=== PATIENT | male | born 1975 | race Caucasian/White ===

== ENCOUNTER 2017-06-16 22:19 | Inpatient (IN) | payer OTHER, MEDICAID ==
[~2017-06-16] VITALS: Ht 172.7 cm; Wt 92.4 kg
[2017-06-16 22:50] VITALS: BP 148/94; PULSE 90; RESP 18; TEMP 98.9; O2SAT 97
[2017-06-16 23:05] VITALS: BP 149/107; PULSE 86; RESP 18; O2SAT 96
[2017-06-16 23:12] VITALS: BP 148/94; PULSE 90; RESP 18; TEMP 98.9; O2SAT 97
[2017-06-17] VITALS (18 sets, daily range): BP systolic 137–151; BP diastolic 85–101; PULSE 3–89; RESP 16–20; TEMP 97.9–99; O2SAT 95–99
[2017-06-17] MEDS ORDERED: VANCOMYCIN INJ 1,500 MG in SODIUM CHLORID 0.9% 500 ML INJ 500 ML IV ONE (00:15)
[2017-06-17 00:29] LABS: AUTOMATED NEUTROPHIL # 5.8 TH/MM3 (1.8-7.7); BASOPHIL # 0.1 TH/MM3 (0-0.2); BASOPHIL % 0.8 % (0.0-2.0); EOSINOPHIL # 0.1 TH/MM3 (0-0.4); EOSINOPHIL % 0.9 % (0.0-4.0); HEMATOCRIT 43.7 % (39.0-51.0); HEMO FLAGS DIFF FINAL; LYMPH % 18.9 % (9.0-44.0); LYMPHOCYTE # 1.6 TH/MM3 (1.0-4.8); MEAN CELL VOLUME 87.6 FL (80.0-100.0); MEAN CORPUSCULAR HEMOGLOBIN 29.3 PG (27.0-34.0); MEAN CORPUSCULAR HGB CONC 33.4 % (32.0-36.0); MONO % 8.5 % (0.0-8.0); NEUT % 70.9 % (16.0-70.0); PLATELET COUNT 202 TH/MM3 (150-450); RED BLOOD COUNT 4.98 MIL/MM3 (4.50-5.90); RED CELL DISTRIBUTION WIDTH 12.7 % (11.6-17.2); WHITE BLOOD COUNT 8.3 TH/MM3 (4.0-11.0)
[2017-06-17 00:37] LABS: POTASSIUM 4.1 MEQ/L (3.5-5.1)
[2017-06-17 00:40] LABS: BICARBONATE 27.5 MEQ/L (21.0-32.0)
[2017-06-17] MEDS ORDERED: IOHEXOL 350 MG/ML 10 ML VIAL (for RAD DIAG) IV ONE (01:39)
--- NOTE | 2017-06-17 01:51 | RADRPT ---
EXAM DATE/TIME: 06/17/2017 01:20 [place] COMPARISON: No previous studies available for comparison. INDICATIONS : Right leg swelling and redness status post arterial graft surgery. IV CONTRAST: 100 cc Omnipaque 350 (iohexol) IV RADIATION DOSE: 15.22 CTDIvol (mGy) MEDICAL HISTORY : None SURGICAL HISTORY : Graft from right upper leg ENCOUNTER: Initial ACUITY: 3 weeks PAIN SCALE: 0/10 LOCATION: Right medial femur TECHNIQUE: Volumetric scanning of the femur was performed. Using automated exposure control and adjustment of t he mA and/or kV according to patient size, radiation dose was kept as low as reasonably achievable to obtain optimal diagnostic quality images. DICOM format image data is available electronically for review and comparison. FINDINGS: Patient is recently status post removal of the greater saphenous vein which was harvested for a graft . Several nonspecific mildly prominent enhancing right inguinal lymph nodes are noted in the right gr oin. The lymph nodes measure about 2.1 cm in diameter. There is post surgical changes in the soft tis sues along the tract of the greater saphenous vein characteristic of the patient's recent surgery. Th ere is nonspecific edema and soft tissue changes in the subcutaneous soft tissues along the anterior and medial thigh. No definite loculated fluid collections are seen to suggest an abscess. There is fl uid along the tract of the greater saphenous vein which I suspect is most likely postsurgical. The ruth ny structures are grossly intact. CONCLUSION: 1. There are postsurgical changes noted in the soft tissues along the medial aspect of the thigh loli acteristics of patient's recent surgery which was removal of the greater saphenous vein for a vein gr aft. There is fluid noted along the greater saphenous tract which I suspect is most likely postsurgic al. 2. There is nonspecific edema and soft tissue changes in the subcutaneous soft tissues along the ante rior medial thigh. No definite loculated fluid collections are demonstrated to suggest an abscess at this time. 3. There is nonspecific mildly prominent right inguinal lymph nodes which are most likely reactive. Andrew Fisher MD on June 17, 2017 at 1:43 Board Certified Radiologist. This report was verified electronically.
--- NOTE | 2017-06-17 02:38 | PD ---
HPI Chief Complaint: Skin Problem Time Seen by Provider: 00:01 Travel History International Travel<30 days: No Contact w/Intl Traveler<30days: No Traveled to known affect area: No History of Present Illness HPI 41-year-old male presents to the emergency department by private transportation the care of his spouse for complaint of worsening redness swelling and tenderness to the right occipital thigh and the postsurgical site where he had saphenous vein harvesting for repair of a brachial artery injury sustained while at work 05/27/17 by vascular surgeon, Dr Scott Rodriguez, at [facility]. Patient has done well postoperatively and has had sutures removed from the 2 surgical sites. Patient noted more recently that he's had some redness to the proximal thigh and then 2 days ago noticed that the redness was increasing so went to urgent care and was prescribed Bactrim and has had 4 doses of Bactrim. Patient notes today that the area of redness is worsening and increasing induration but no fever or chills and the area demarcated by a pin has not extended significant beyond that side. Patient [facility] surgeon was notified and was satisfied with patient continuing on oral antibiotic and encouraged him to keep his scheduled appointment for June as planned. Due to increasing symptoms this evening decided to come to the emergency room for further evaluation. [facility] Past Medical History Narrative Medical Brachial artery repair status post crush injury with saphenous vein harvesting; occasional alcohol use; nursing notes reviewed Past Surgical History Other Surgery: Yes (Brachial artery-crush injury) Social History Alcohol Use: Yes (Socially) Tobacco Use: No Substance Use: No Allergies-Medications (Allergen,Severity, Reaction): Coded Allergies: Penicillin (Verified Allergy, Unknown, unknown, 06/16/17) Narrative Medication bactrim DS Review of Systems Except as stated in HPI: all other systems reviewed are Neg General / Constitutional: No: Fever, Chills HENT: No: Congestion Cardiovascular: No: Chest Pain or Discomfort Respiratory: No: Shortness of Breath Gastrointestinal: No: Nausea, Diarrhea Genitourinary: No: Dysuria Musculoskeletal: Positive: Myalgias, Arthralgias, Limited ROM (RUE --improving and ROM c/w expected progress), Pain (5/10 right proximal medial thigh) Skin: Positive Rash Neurologic: No: Weakness Psychiatric: No: Anxiety Hematologic/Lymphatic: No: Easy Bruising Physical Exam Narrative GENERAL: Well-developed well-nourished female in no acute distress no respiratory distress SKIN: Warm and dry. HEAD: Normocephalic. EYES: No scleral icterus. No injection or drainage. NECK: Supple, trachea midline. No JVD or lymphadenopathy. CARDIOVASCULAR: Regular rate and rhythm without murmurs, gallops, or rubs. RESPIRATORY: Breath sounds equal bilaterally. No accessory muscle use. GASTROINTESTINAL: Abdomen soft, non-tender, nondistended. MUSCULOSKELETAL: No cyanosis, or edema. Attention right lower extremity without generalized edema Homans sign or posterior calf tenderness or cording dorsalis pedis pulse 2+ to palpation with brisk capillary refill less than 2 seconds per digit no pallor or coolness of the patient does have area of localized erythema induration and mild tenderness to palpation at the right proximal medial thigh around the postsurgical site where sutures have been removed no active drainage no severe purulent drainage no fluctuance no crepitus no ecchymosis no eschar no necrotic tissue area of erythema and induration approximately 20 cm x 12 cm. RUE no redness or induration no drainage steri strips in place distally extremity is neurovascularly intact with intact light touch sensation brisk capillary refill less than 2 seconds per digit radial pulse 2+ to palpation patient continues to have some residual wrist drop and wears a brace at all times that is reportedly at baseline are slowly improving. Patient unable to perform thumb apposition which has been present since injury. BACK: Nontender without obvious deformity. No CVA tenderness. Data Data Last Documented VS Vital Signs Date Time Temp Pulse Resp B/P Pulse Ox O2 Delivery O2 Flow Rate FiO2 06/17/17 03:17 83 16 140/96 97 Room Air 06/16/17 23:12 98.9 Orders Basic Metabolic Panel (Bmp) (06/17/17 00:04) Complete Blood Count With Diff (06/17/17 00:04) Blood Culture (06/17/17 00:04) Iv Access Insert/Monitor (06/17/17 00:04) Lactic Acid (06/17/17 00:04) Vancomycin Inj (Vancomycin Inj) (06/17/17 00:15) Ct Femur W Iv Contrast (06/17/17 ) Iohexol 350 Inj (Omnipaque 350 Inj) (06/17/17 01:39) Levofloxacin 500 Mg Premix Inj (Levaquin (06/17/17 03:45) Admit Order (Ed Use Only) (06/17/17 ) ^ Saline Lock (06/17/17 03:37) Resp Oxygen Rigo C Titrat 1-4 L (06/17/17 ) Notify Dr: Other (06/17/17 03:37) Sodium Chloride 0.9% Flush (Ns Flush) (06/17/17 09:00) Sodium Chloride 0.9% Flush (Ns Flush) (06/17/17 03:45) Labs Laboratory Tests Test 06/17/17 00:09 White Blood Count 8.3 TH/MM3 Red Blood Count 4.98 MIL/MM3 Hemoglobin 14.6 GM/DL Hematocrit 43.7 % Mean Corpuscular Volume 87.6 FL Mean Corpuscular Hemoglobin 29.3 PG Mean Corpuscular Hemoglobin 33.4 % Concent Red Cell Distribution Width 12.7 % Platelet Count 202 TH/MM3 Mean Platelet Volume 10.0 FL Neutrophils (%) (Auto) 70.9 % Lymphocytes (%) (Auto) 18.9 % Monocytes (%) (Auto) 8.5 % Eosinophils (%) (Auto) 0.9 % Basophils (%) (Auto) 0.8 % Neutrophils # (Auto) 5.8 TH/MM3 Lymphocytes # (Auto) 1.6 TH/MM3 Monocytes # (Auto) 0.7 TH/MM3 Eosinophils # (Auto) 0.1 TH/MM3 Basophils # (Auto) 0.1 TH/MM3 CBC Comment DIFF FINAL Differential Comment Sodium Level 143 MEQ/L Potassium Level 4.1 MEQ/L Chloride Level 109 MEQ/L Carbon Dioxide Level 27.5 MEQ/L Anion Gap 7 MEQ/L Blood Urea Nitrogen 16 MG/DL Creatinine 1.10 MG/DL Estimat Glomerular Filtration 74 ML/MIN Rate Random Glucose 98 MG/DL Lactic Acid Level 1.1 mmol/L Calcium Level 8.6 MG/DL MDM Medical Decision Making Medical Screen Exam Complete: Yes Emergency Medical Condition: Yes Medical Record Reviewed: Yes Interpretation(s) CT femur w/ iv contrast: CONCLUSION: 1. There are postsurgical changes noted in the soft tissues along the medial aspect of the thigh characteristics of patient's recent surgery which was removal of the greater saphenous vein for a vein graft. There is fluid noted along the greater saphenous tract which I suspect is most likely postsurgical. 2. There is nonspecific edema and soft tissue changes in the subcutaneous soft tissues along the anterior medial thigh. No definite loculated fluid collections are demonstrated to suggest an abscess at this time. 3. There is nonspecific mildly prominent right inguinal lymph nodes which are most likely reactive. Andrew Fisher MD on June 17, 2017 at 1:43 Board Certified Radiologist. This report was verified electronically. CBC & BMP Diagram 06/17/17 00:09 Vital Signs Date Time Temp Pulse Resp B/P Pulse Ox O2 Delivery O2 Flow Rate FiO2 06/17/17 01:55 79 18 151/89 97 Room Air 06/17/17 00:30 18 06/17/17 00:20 82 18 150/101 95 Room Air 06/16/17 23:20 18 06/16/17 23:12 98.9 90 18 148/94 97 06/16/17 23:05 86 18 149/107 96 Room Air 06/16/17 22:50 98.9 90 18 148/94 97 Differential Diagnosis Cellulitis, abscess, pseudoaneurysm Narrative Course IV access obtained specimens collected and sent for resulting including blood cultures and lactic acid; patient administered IV vancomycin times one dose. CT femur with IV contrast to assess for abscess ordered. Physician Communication Physician Communication call placed to [facility] service --- ---> [facility]; call placed to vascular service - Dr stroud rec: [facility] and [facility] if stays; call placed to [facility] for Dr Rodriguez ([phone]) discussed with Dr Sage Harding---iv antibiotics no need for transfer --can see Dr Rodriguez Wednesday in [place] office; discussed with DR Caceres ---admit to [facility] no vascular issue at this time for IV antibiotics and if needs vascular will consult/transfer at that time Diagnosis Primary Impression: Cellulitis of right thigh Admitting Information Admitting Physician Requests: Admit Crystal Ybarra MD Jun 17, 2017 02:38
[2017-06-17] MEDS ORDERED: SODIUM CHLORIDE 0.9% FLUSH 10 ML FLUSH IVF PRN (03:45)
[2017-06-17] MEDS ORDERED: SODIUM CHLORIDE 0.9% FLUSH 10 ML FLUSH IV FLUSH PRN (03:45)
[2017-06-17] MEDS ORDERED: NALOXONE HCL 0.4 MG/ML AMP IV PRN (03:45)
[2017-06-17] MEDS ORDERED: LEVOFLOXACIN 500 MG PREMIX INJ 100 ML IV ONE ×2 (03:45→04:00)
[2017-06-17] MEDS ORDERED: MUPI2OIN TOPICAL (04:16)
[2017-06-17] MEDS ORDERED: SULF1TAB58 PO (04:16)
[2017-06-17] MEDS ORDERED: Vancomycin Consult Pharmacy 1 EA OTHER SCH (07:30)
--- NOTE | 2017-06-17 07:40 | HHI.HP ---
[facility] Service [facility] Primary Care Physician No Primary Care Physician Admission Diagnosis post op cellulitis R thigh Diagnoses: (1) Cellulitis of right thigh Diagnosis: Principal Chief Complaint: redness and swelling of the right thigh Travel History International Travel<30 Days: No Contact w/Intl Traveler <30 Da: No Traveled to Known Affected Are: No History of Present Illness patient is a 41 y/o male with no significant past medical history who underwent saphenous vein harvesting for repair of a brachial artery injury sustained while at work 05/27/17 by vascular surgeon, Dr Scott Rodriguez, at [facility], presented with swelling and redness of the right thigh at the site of the surgery. he says that he noticed some swelling of the right thigh about a week ago. he was seen at urgent care two days ago and was prescribed bactrim. he says that he took bactrim for a couple of days but last night when he noticed that the redness and swelling was not improving he decided to come back to ER. he denies any fever or chills. pain to the site is mild. he denies any other symptoms. Review of Systems Constitutional: DENIES: Fever, Weight loss, Chills, Night Sweats Eyes: DENIES: Blurred vision, Diplopia, Vision loss, Double Vision Ears, nose, mouth, throat: DENIES: Tinnitus, Vertigo, Throat pain, Epistaxis Respiratory: DENIES: Apneas, Cough, Snoring, Wheezing, Hemoptysis, Sputum production, Shortness of breath Cardiovascular: DENIES: Chest pain, Palpitations, Syncope, Dyspnea on Exertion , PND, Lower Extremity Edema, Orthopnea, Claudication Gastrointestinal: DENIES: Abdominal pain, Black stools, Bloody stools, Constipation, Diarrhea, Nausea, Vomiting, Difficulty Swallowing, Anorexia Genitourinary: DENIES: Urinary frequency, Urgency, Hematuria, Dysuria Musculoskeletal: DENIES: Joint pain, Muscle aches, Stiffness, Joint Swelling Integumentary: DENIES: Rash Neurologic: DENIES: Abnormal gait, Headache, Localized weakness, Paresthesias, Seizures, Speech Problems, Tremor, Poor Balance Psychiatric: DENIES: Anxiety, Confusion, Mood changes, Depression, Hallucinations, Agitation, Suicidal Ideation, Homicidal Ideation, Delusions redness and swelling of the right thigh. Past Family Social History Past Medical History not significant. Past Surgical History recent saphenous vein harvesting for repair of a brachial artery injury . Reported Medications none except bactrim that was prescribed recently. Allergies: Coded Allergies: Penicillin (Verified Allergy, Unknown, unknown, 06/16/17) Active Ordered Medications Current Medications Vancomycin HCl/ Sodium Chloride (Vancomycin Inj/ NS 500 ml Inj) 515 ml @ 257.5 mls/ hr ONCE ONCE IV Last administered on 06/17/17 01:04; Start 06/17/17 at 00:15; Stop 06/17/17 at 02:14; Status DC Iohexol 100 ml 100 ml STK-MED ONCE IV Last administered on 06/17/17 01:39; Start 06/17/17 at 01:39; Stop 06/17/17 at 01:40; Status DC Levofloxacin/ Dextrose (Levaquin 500 Mg Premix Inj) 100 ml @ 100 mls/hr ONCE ONCE IV Last administered on 06/17/17 03:48; Start 06/17/17 at 03:45; Stop at 03:47; Status DC Sodium Chloride (NS Flush) 2 ml BID IV FLUSH ; Start 06/17/17 at 09:00; Stop at 09:00; Status DC Sodium Chloride (NS Flush) 2 ml UNSCH PRN IVF FLUSH AFTER USING IV ACCESS; Start 06/17/17 at 03:45; Stop 06/17/17 at 03:46; Status DC Sodium Chloride (NS Flush) 2 ml UNSCH PRN IV FLUSH FLUSH AFTER USING IV ACCESS ; Start 06/17/17 at 03:45 Sodium Chloride (NS Flush) 2 ml BID IV FLUSH ; Start 06/17/17 at 09:00 Naloxone HCl 0.4 mg 0.4 mg UNSCH PRN IV SEE LABEL COMMENTS; Start 06/17/17 at 03:45 Levofloxacin/ Dextrose 150 ml @ 100 mls/hr Q24H IV ; Start 06/18/17 at 04:00 Levofloxacin/ Dextrose (Levaquin 500 Mg Premix Inj) 100 ml @ 100 mls/hr ONCE ONCE IV Last administered on 7/20/17at 04:54; Start 06/17/17 at 04:00; Stop at 04:59; Status DC Family History not significant. Social History no smoking or drinking. Physical Exam Vital Signs Vital Signs Date Time Temp Pulse Resp B/P Pulse Ox O2 Delivery O2 Flow Rate FiO2 06/17/17 05:32 95 21 06/17/17 04:58 99.0 80 18 145/99 95 06/17/17 04:29 82 18 149/91 97 Room Air 06/17/17 03:37 18 06/17/17 03:17 83 16 140/96 97 Room Air 06/17/17 02:15 18 06/17/17 01:55 79 18 151/89 97 Room Air 06/17/17 00:30 18 06/17/17 00:20 82 18 150/101 95 Room Air 06/16/17 23:20 18 06/16/17 23:12 98.9 90 18 148/94 97 06/16/17 23:05 86 18 149/107 96 Room Air 06/16/17 22:50 98.9 90 18 148/94 97 Physical Exam GENERAL: This is a well-nourished, well-developed patient, in no apparent distress. SKIN: redness over the medial right thigh. HEAD: Atraumatic. Normocephalic. No temporal or scalp tenderness. EYES: Pupils equal round and reactive. Extraocular motions intact. No scleral icterus. No injection or drainage. ENT: Nose without bleeding, purulent drainage or septal hematoma. Throat without erythema, tonsillar hypertrophy or exudate. Uvula midline. Airway patent. NECK: Trachea midline. No JVD or lymphadenopathy. Supple, nontender, no meningeal signs. CARDIOVASCULAR: Regular rate and rhythm without murmurs, gallops, or rubs. RESPIRATORY: Clear to auscultation. Breath sounds equal bilaterally. No wheezes , rales, or rhonchi. GASTROINTESTINAL: Abdomen soft, non-tender, nondistended. No hepato-splenomegaly , or palpable masses. No guarding. MUSCULOSKELETAL: swelling and erythema over the medial right thigh. NEUROLOGICAL: Awake and alert. Cranial nerves II through XII intact. Motor and sensory grossly within normal limits. Five out of 5 muscle strength in all muscle groups. Normal speech. Laboratory Laboratory Tests Test 06/17/17 00:09 White Blood Count 8.3 Red Blood Count 4.98 Hemoglobin 14.6 Hematocrit 43.7 Mean Corpuscular Volume 87.6 Mean Corpuscular Hemoglobin 29.3 Mean Corpuscular Hemoglobin 33.4 Concent Red Cell Distribution Width 12.7 Platelet Count 202 Mean Platelet Volume 10.0 Neutrophils (%) (Auto) 70.9 Lymphocytes (%) (Auto) 18.9 Monocytes (%) (Auto) 8.5 Eosinophils (%) (Auto) 0.9 Basophils (%) (Auto) 0.8 Neutrophils # (Auto) 5.8 Lymphocytes # (Auto) 1.6 Monocytes # (Auto) 0.7 Eosinophils # (Auto) 0.1 Basophils # (Auto) 0.1 CBC Comment DIFF FINAL Differential Comment Sodium Level 143 Potassium Level 4.1 Chloride Level 109 Carbon Dioxide Level 27.5 Anion Gap 7 Blood Urea Nitrogen 16 Creatinine 1.10 Estimat Glomerular Filtration 74 Rate Random Glucose 98 Lactic Acid Level 1.1 Calcium Level 8.6 Date/Time Procedure Status Source Growth 06/17/17 00:15 Aerobic Blood Culture Received Blood Peripheral Pending 06/17/17 00:15 Anaerobic Blood Culture Received Blood Peripheral Pending Result Diagram: 06/17/17 0009 06/17/17 0009 Imaging Last Impressions Lower Extremity CT 06/17/17 0000 Signed Impressions: Service Date/Time: May 01:20 - CONCLUSION: 1. There are postsurgical changes noted in the soft tissues along the medial aspect of the thigh characteristics of patient's recent surgery which was removal of the greater saphenous vein for a vein graft. There is fluid noted along the greater saphenous tract which I suspect is most likely postsurgical. 2. There is nonspecific edema and soft tissue changes in the subcutaneous soft tissues along the anterior medial thigh. No definite loculated fluid collections are demonstrated to suggest an abscess at this time. 3. There is nonspecific mildly prominent right inguinal lymph nodes which are most likely reactive. Andrew Fisher MD Assessment and Plan Assessment and Plan A/P - post-surgical cellulitis of the right thigh- s/p saphenous vein harvesting for repair of a brachial artery injury sustained while at work 05/27/17 . failed outpatient treatment. CT of the lower extremity with no fluid collection. continue with IV antibiotics- follow the blood cultures. consult vascular surgery; case d/w ; patient to be transferred to the [facility] for further evaluation. Discussed Condition With the patient. Physician Certification 2 Midnight Certification Type: Admission for Inpatient Services Order for Inpatient Services The services are ordered in accordance with Medicare regulations or non- Medicare payer requirements, as applicable. In the case of services not specified as inpatient-only, they are appropriately provided as inpatient services in accordance with the 2-midnight benchmark. Estimated LOS (days): 2 days is the estimated time the patient will need to remain in the hospital, assuming treatment plan goals are met and no additional complications. Post-Hospital Plan: Home Subhash Lopez MD Jun 17, 2017 07:40
[2017-06-17] MEDS ORDERED: ONDANSETRON HCL 4 MG/2 ML VIAL IV PUSH PRN (07:45)
[2017-06-17] MEDS ORDERED: ACETAMINOPHEN 325 MG TAB PO PRN (07:45)
[2017-06-17] MEDS: SODIUM CHLORIDE 0.9% FLUSH 10 ML FLUSH IV FLUSH SCH ×2 (08:39→21:00)
[2017-06-17] MEDS ORDERED: SODIUM CHLORIDE 0.9% FLUSH 10 ML FLUSH IV FLUSH SCH (09:00)
[2017-06-17] MEDS: VANCOMYCIN INJ 1,800 MG in SODIUM CHLORID 0.9% 500 ML INJ 500 ML IV SCH (17:38)
[2017-06-18] VITALS (14 sets, daily range): BP systolic 130–146; BP diastolic 68–87; PULSE 71–88; RESP 14–18; TEMP 97–98.6; O2SAT 95–98
[2017-06-18] MEDS: LEVOFLOXACIN 750 MG PREMIX INJ 150 ML IV SCH (03:14)
[2017-06-18 05:23] LABS: AUTOMATED NEUTROPHIL # 4.1 TH/MM3 (1.8-7.7); BASOPHIL % 0.5 % (0.0-2.0); EOSINOPHIL # 0.1 TH/MM3 (0-0.4); EOSINOPHIL % 1.2 % (0.0-4.0); HEMATOCRIT 41.9 % (39.0-51.0); HEMO FLAGS DIFF FINAL; LYMPHOCYTE # 1.4 TH/MM3 (1.0-4.8); MEAN CELL VOLUME 88.3 FL (80.0-100.0); MEAN CORPUSCULAR HEMOGLOBIN 29.2 PG (27.0-34.0); MEAN CORPUSCULAR HGB CONC 33.1 % (32.0-36.0); MONO % 8.9 % (0.0-8.0); NEUT % 66.4 % (16.0-70.0); PLATELET COUNT 178 TH/MM3 (150-450); RED BLOOD COUNT 4.74 MIL/MM3 (4.50-5.90); RED CELL DISTRIBUTION WIDTH 13.2 % (11.6-17.2); WHITE BLOOD COUNT 6.2 TH/MM3 (4.0-11.0)
[2017-06-18 05:53] LABS: BICARBONATE 27.6 MEQ/L (21.0-32.0); POTASSIUM 4.1 MEQ/L (3.5-5.1)
[2017-06-18] MEDS: SODIUM CHLORIDE 0.9% FLUSH 10 ML FLUSH IV FLUSH SCH ×2 (08:54→21:00)
--- NOTE | 2017-06-18 09:09 | PD.VS.CON ---
History of Present Illness Chief Complaint: right groin redness. Consult Requested by: History of Present Illness 41 year old status post crush injury RUE with bypass with GSV from right leg. Presented with cellulitis of harvest site after initial failure of PO Abx. Past/Family/Social History Home Medications Reported Medications Sulfamethoxazole/Trimethoprim (Sulfamethoxazole-Tmp Ss Tablet)400 Mg-80 Mg Tablet1 Tab PO BID 06/17/17 Mupirocin Topical 2 % Oint1 Applic TOPICAL BID #1 TUBE Ref 0 06/17/17 Coded Allergies: Penicillin (Verified Allergy, Unknown, unknown, 06/16/17) Physical Exam Vitals/I&O Date Time Temp Pulse Resp B/P Pulse Ox O2 Delivery O2 Flow Rate FiO2 06/18/17 07:41 80 06/18/17 06:00 76 06/18/17 05:00 74 06/18/17 04:00 71 06/18/17 03:00 97.9 86 16 135/80 98 06/18/17 03:00 75 06/18/17 02:42 95 06/18/17 02:00 76 06/18/17 01:00 75 06/18/17 00:00 76 06/17/17 23:30 98.0 77 16 140/85 97 06/17/17 23:00 80 06/17/17 22:00 84 06/17/17 21:00 86 06/17/17 20:30 98.1 89 18 146/87 97 06/17/17 20:00 76 06/17/17 19:00 71 06/17/17 18:00 78 06/17/17 17:00 76 06/17/17 16:00 98.7 80 16 142/92 98 06/17/17 16:00 85 06/17/17 11:53 98.3 70 20 137/89 99 06/18/17 06/18/17 06/18/17 07:00 15:00 23:00 Intake Total 990 ml Output Total 350 ml Balance 640 ml Neuro: intact Neck: supple Heart: regular Lungs: CTA Abdomen: Soft Vascular: Right arm with palpable radial pulse incision intact with steristrips medial arm Extremities: right hand warm. Erythema and ecchymosis right anterior medial thigh approx about 4x6 cm.. no fluctuance and minimal warmth. Laboratory Tests Test 06/18/17 04:40 White Blood Count 6.2 Red Blood Count 4.74 Hemoglobin 13.9 Hematocrit 41.9 Mean Corpuscular Volume 88.3 Mean Corpuscular Hemoglobin 29.2 Mean Corpuscular Hemoglobin 33.1 Concent Red Cell Distribution Width 13.2 Platelet Count 178 Mean Platelet Volume 9.8 Neutrophils (%) (Auto) 66.4 Lymphocytes (%) (Auto) 23.0 Monocytes (%) (Auto) 8.9 Eosinophils (%) (Auto) 1.2 Basophils (%) (Auto) 0.5 Neutrophils # (Auto) 4.1 Lymphocytes # (Auto) 1.4 Monocytes # (Auto) 0.6 Eosinophils # (Auto) 0.1 Basophils # (Auto) 0.0 CBC Comment DIFF FINAL Differential Comment Sodium Level 140 Potassium Level 4.1 Chloride Level 105 Carbon Dioxide Level 27.6 Anion Gap 7 Blood Urea Nitrogen 13 Creatinine 1.02 Estimat Glomerular Filtration 80 Rate Random Glucose 103 Calcium Level 9.2 Date/Time Procedure Status Source Growth 06/17/17 00:15 Aerobic Blood Culture Received Blood Peripheral Pending 06/17/17 00:15 Anaerobic Blood Culture Received Blood Peripheral Pending Last 48 hours Impressions Lower Extremity CT 06/17/17 0000 Signed Impressions: Service Date/Time: May 01:20 - CONCLUSION: 1. There are postsurgical changes noted in the soft tissues along the medial aspect of the thigh characteristics of patient's recent surgery which was removal of the greater saphenous vein for a vein graft. There is fluid noted along the greater saphenous tract which I suspect is most likely postsurgical. 2. There is nonspecific edema and soft tissue changes in the subcutaneous soft tissues along the anterior medial thigh. No definite loculated fluid collections are demonstrated to suggest an abscess at this time. 3. There is nonspecific mildly prominent right inguinal lymph nodes which are most likely reactive. Andrew Fisher MD Assessment and Plan Assessment: (1) Cellulitis of right thigh Status: Acute Plan 1. continue IV abx for cellulitis of thigh that appears to be improving. 2. May be beneficial to have 2 weeks of IV abx, picc line etc. with home infusion set up. 3. Follow up with his Vascular surgeon in [place] after discharge. Luiz Cardona DO Jun 18, 2017 09:09
--- NOTE | 2017-06-18 09:36 | HHI.PR ---
Subjective Remarks Patient seen and examined this am. Vitals are stable and he is afebrile. He feels well without any complaints. Night was okay. Ambulatory without any issues. Tolerating diet. Feels infection has improved. Objective Vital Signs Date Time Temp Pulse Resp B/P Pulse Ox O2 Delivery O2 Flow Rate FiO2 06/18/17 07:41 80 06/18/17 06:00 76 06/18/17 05:00 74 06/18/17 04:00 71 06/18/17 03:00 97.9 86 16 135/80 98 06/18/17 03:00 75 06/18/17 02:42 95 06/18/17 02:00 76 06/18/17 01:00 75 06/18/17 00:00 76 06/17/17 23:30 98.0 77 16 140/85 97 06/17/17 23:00 80 06/17/17 22:00 84 06/17/17 21:00 86 06/17/17 20:30 98.1 89 18 146/87 97 06/17/17 20:00 76 06/17/17 19:00 71 06/17/17 18:00 78 06/17/17 17:00 76 06/17/17 16:00 98.7 80 16 142/92 98 06/17/17 16:00 85 06/17/17 11:53 98.3 70 20 137/89 99 I/O 06/17/17 06/17/17 06/17/17 06/18/17 06/18/17 06/18/17 07:00 15:00 23:00 07:00 15:00 23:00 Intake Total 700 ml 210 ml 990 ml Output Total 350 ml Balance 700 ml 210 ml 640 ml Intake Oral 210 ml 240 ml IV Total 700 ml 750 ml Output Urine Total 350 ml # Voids 2 2 # Bowel Movements 0 Result Diagram: 06/18/17 0440 06/18/17 0440 Imaging Last Impressions Lower Extremity CT 06/17/17 0000 Signed Impressions: Service Date/Time: May 01:20 - CONCLUSION: 1. There are postsurgical changes noted in the soft tissues along the medial aspect of the thigh characteristics of patient's recent surgery which was removal of the greater saphenous vein for a vein graft. There is fluid noted along the greater saphenous tract which I suspect is most likely postsurgical. 2. There is nonspecific edema and soft tissue changes in the subcutaneous soft tissues along the anterior medial thigh. No definite loculated fluid collections are demonstrated to suggest an abscess at this time. 3. There is nonspecific mildly prominent right inguinal lymph nodes which are most likely reactive. Andrew Fisher MD Objective Remarks GENERAL: sitting in chair, well appearing, nad SKIN: Warm and dry. right medial thigh with apprx 4 cm of erythema, the area is demarcated with maker and shows improvement. there is no drainage or palpable abscess. it is slightly warm to touch. not tender to manipulation. HEAD: Normocephalic. EYES: No scleral icterus. No injection or drainage. NECK: Supple, trachea midline. No JVD or lymphadenopathy. CARDIOVASCULAR: Regular rate and rhythm without murmurs, gallops, or rubs. RESPIRATORY: Breath sounds equal bilaterally. No accessory muscle use. GASTROINTESTINAL: Abdomen soft, non-tender, nondistended. MUSCULOSKELETAL: No cyanosis, or edema. A/P Problem List: (1) Cellulitis of right thigh ICD Code: L03.115 Assessment and Plan 41 yo male presents with right thigh cellulitis after saphenous vein harvesting for repair of brachial artery 05/27 Right thigh cellulitis - post op - failed outpatient treatment with bactrim - see imaging above, CT shows no fluid collection or sign of abscess - blood cultures obtained and pending - currently on levaquin 06/18 & Vancomycin 06/17, will monitor for results and adjust as necessary - Dr. Cardona: cont IV abx, may benefit from 2 weeks abx, PICC, with home infusion set up, follow up with vascular surgeon after discharge Discharge Planning D/C pending clinical improvement likely monitor over the weekend on IV abx and determine at that time if further IV abx needed as an outpatient or if PO okay. Latia Sotomayor MD Jun 18, 2017 09:36
[2017-06-18] MEDS: VANCOMYCIN INJ 1,800 MG in SODIUM CHLORID 0.9% 500 ML INJ 500 ML IV SCH (11:59)
[2017-06-19] VITALS (7 sets, daily range): BP systolic 133–140; BP diastolic 74–92; PULSE 72–86; RESP 18–20; TEMP 96–98.9; O2SAT 96–98
[2017-06-19] MEDS: LEVOFLOXACIN 750 MG PREMIX INJ 150 ML IV SCH (03:15)
[2017-06-19] MEDS: VANCOMYCIN INJ 1,800 MG in SODIUM CHLORID 0.9% 500 ML INJ 500 ML IV SCH ×2 (07:07→23:58)
[2017-06-19] MEDS: SODIUM CHLORIDE 0.9% FLUSH 10 ML FLUSH IV FLUSH SCH ×2 (10:18→21:00)
--- NOTE | 2017-06-19 10:44 | HHI.PR ---
Subjective Remarks Patient seen and examined this am. Vitals are stable and he is afebrile. He feels well without any complaints. Feels infection and incision is healing well. Objective Vital Signs Date Time Temp Pulse Resp B/P Pulse Ox O2 Delivery O2 Flow Rate FiO2 06/19/17 08:00 97.7 74 18 137/89 97 06/19/17 04:00 96.0 77 19 134/84 97 06/19/17 00:00 98.9 77 20 133/74 98 06/18/17 21:00 98.6 81 14 146/87 98 06/18/17 15:54 97.0 78 18 130/70 98 06/18/17 12:33 98.0 84 18 138/74 98 I/O 06/18/17 06/18/17 06/18/17 06/19/17 06/19/17 06/19/17 07:00 15:00 23:00 07:00 15:00 23:00 Intake Total 990 ml 1300 ml 250 ml Output Total 350 ml 1300 ml 0 ml Balance 640 ml 0 ml 250 ml Intake Oral 240 ml 800 ml 0 ml IV Total 750 ml 500 ml 250 ml Output Urine Total 350 ml 1300 ml 0 ml # Voids 2 # Bowel Movements 0 0 Result Diagram: 06/18/17 0440 06/18/17 0440 Imaging Last Impressions Lower Extremity CT 06/17/17 0000 Signed Impressions: Service Date/Time: May 01:20 - CONCLUSION: 1. There are postsurgical changes noted in the soft tissues along the medial aspect of the thigh characteristics of patient's recent surgery which was removal of the greater saphenous vein for a vein graft. There is fluid noted along the greater saphenous tract which I suspect is most likely postsurgical. 2. There is nonspecific edema and soft tissue changes in the subcutaneous soft tissues along the anterior medial thigh. No definite loculated fluid collections are demonstrated to suggest an abscess at this time. 3. There is nonspecific mildly prominent right inguinal lymph nodes which are most likely reactive. Andrew Fisher MD Objective Remarks GENERAL: laying in bed, well appearing, nad SKIN: Warm and dry. right medial thigh with apprx 4 cm of erythema, the area is demarcated with maker and shows significant improvement. there is no drainage or palpable abscess. the incision appears to be healing well as well. not tender to manipulation. HEAD: Normocephalic. EYES: No scleral icterus. No injection or drainage. NECK: Supple, trachea midline. No JVD or lymphadenopathy. CARDIOVASCULAR: Regular rate and rhythm without murmurs, gallops, or rubs. RESPIRATORY: Breath sounds equal bilaterally. No accessory muscle use. GASTROINTESTINAL: Abdomen soft, non-tender, nondistended. MUSCULOSKELETAL: No cyanosis, or edema. A/P Problem List: (1) Cellulitis of right thigh ICD Code: L03.115 Assessment and Plan 41 yo male presents with right thigh cellulitis after saphenous vein harvesting for repair of brachial artery 05/27 Right thigh cellulitis - post op - failed outpatient treatment with bactrim - see imaging above, CT shows no fluid collection or sign of abscess - blood cultures negative x 1 day - currently on levaquin 06/18 & Vancomycin 06/17, will monitor for results and adjust as necessary - Dr. Cardona: cont IV abx, may benefit from 2 weeks abx, PICC, with home infusion set up, follow up with vascular surgeon after discharge ID consult placed for abx reccs Discharge Planning D/C pending clinical improvement and abx reccs by ID. Latia Sotomayor MD Jun 19, 2017 10:44
--- NOTE | 2017-06-19 11:04 | PD.VS.PN ---
Subjective Subjective/Hospital Course decreased redness of groin site. Objective Vitals/I&O Date Time Temp Pulse Resp B/P Pulse Ox O2 Delivery O2 Flow Rate FiO2 06/19/17 08:00 97.7 74 18 137/89 97 06/19/17 04:00 96.0 77 19 134/84 97 06/19/17 00:00 98.9 77 20 133/74 98 06/18/17 21:00 98.6 81 14 146/87 98 06/18/17 15:54 97.0 78 18 130/70 98 06/18/17 12:33 98.0 84 18 138/74 98 06/19/17 06/19/17 06/19/17 07:00 15:00 23:00 Intake Total 250 ml 585 ml Output Total 0 ml Balance 250 ml 585 ml Laboratory Date/Time Procedure Status Source Growth 06/17/17 00:15 Aerobic Blood Culture - Preliminary Resulted Blood Peripheral NO GROWTH IN 1 DAY 06/17/17 00:15 Anaerobic Blood Culture - Preliminary Resulted Blood Peripheral NO GROWTH IN 1 DAY Assessment and Plan Assessment: (1) Cellulitis of right thigh Status: Acute Plan 1. continue IV abx for cellulitis of thigh that appears to be improving. 2. May be beneficial to have 2 weeks of IV abx, picc line etc. with home infusion set up. 3. Follow up with his Vascular surgeon in [place] after discharge. Luiz Cardona DO Jun 19, 2017 11:04
--- NOTE | 2017-06-19 17:00 | PD.CONS ---
History of Present Illness Service Infectious Disease Consult Requested By Dr Sotomayor Reason for Consult Evaluate patient with cellulitis Primary Care Physician No Primary Care Physician Diagnoses: History of Present Illness Patient seen and examined. Records reviewed. Patient is a 41-year-old male, who sustained an injury to his right upper extremity while he was at work last May 27, 2017. He was admitted to [facility], and he underwent surgery to his injury word tracheal artery, using greater saphenous vein for grafting. He was discharged home after about 3 days of hospitalization, and he was doing okay until about a week ago when he started noticing some redness in his right thigh. He really didn't have any significant pain, but it was not improving so he went to the urgent care center , and he was given some oral antibiotics. The area of redness did not improve and it seemed to be more swollen so he went to the emergency room for further evaluation and treatment. He has not had any fever or chills or sweats. He denies any other symptom as far as respiratory GI or any urinary complaints. Patient will has been admitted to the hospital for cellulitis in his right thigh. Patient has been on IV vancomycin and Levaquin. He has noted improvement in the area of redness as well as the area of swelling. Imaging study showed some postoperative fluid but no finding to suggest abscess. His WBC is normal. He has not had any fever. Infectious disease consultation has been requested to evaluate the patient. Review of Systems Constitutional: DENIES: Fever, Chills Eyes: DENIES: Eye pain Ears, nose, mouth, throat: DENIES: Nasal discharge, Throat pain, Ear Pain, Sinus Pain Respiratory: DENIES: Cough, Shortness of breath Cardiovascular: DENIES: Chest pain, Palpitations Gastrointestinal: DENIES: Abdominal pain, Diarrhea, Nausea, Vomiting, Difficulty Swallowing Genitourinary: DENIES: Urgency, Dysuria Musculoskeletal: DENIES: Joint pain, Joint Swelling Integumentary: DENIES: Rash Neurologic: DENIES: Localized weakness Psychiatric: DENIES: Hallucinations Past Family Social History Allergies: Coded Allergies: Penicillin (Verified Allergy, Unknown, unknown, 06/16/17) Past Medical History None Past Surgical History Surgery to RUE from crushed injury, had GSV for graft to injured brachial artery Active Ordered Medications Tylenol Levaquin Zofran Vancomycin Family History Non-contributory to current ID problem Social History No smoking No ETOH abuse No illicit drugs Physical Exam Vital Signs Vital Signs Date Time Temp Pulse Resp B/P Pulse Ox O2 Delivery O2 Flow Rate FiO2 06/19/17 16:00 97.8 86 18 138/81 96 06/19/17 12:00 97.0 79 18 140/92 96 06/19/17 08:00 97.7 74 18 137/89 97 06/19/17 04:00 96.0 77 19 134/84 97 06/19/17 00:00 98.9 77 20 133/74 98 06/18/17 21:00 98.6 81 14 146/87 98 Physical Exam GENERAL: Patient is a well-nourished, well-developed CM, awake and alert, not in respiratory distress. SKIN: Warm and dry. No generalized rash, no ecchymoses and no evidence of embolic lesions. HEAD: Atraumatic. Normocephalic. No temporal wasting, or tenderness. EYES: [place] conjunctiva. No petechia or hemorrhage. Pupils equal, round and reactive to light. Extraocular movements full and intact. No scleral icterus. No injection or drainage. EARS, NOSE AND THROAT: Nose without bleeding or purulent nasal discharge. No sinus tenderness. Mucous membranes pink and moist. No oral lesions noted. No exudate. No oral thrush. NECK: Trachea midline. Supple and not tender, no meningeal signs CARDIOVASCULAR: Regular rate and rhythm. No murmurs, rubs or gallops heard RESPIRATORY: Clear to auscultation. Breath sounds equal bilaterally. No rales , wheezing or rhonchi ABDOMEN: Soft, non-tender, nondistended. Bowel sounds present and normoactive. No guarding. No rebound. No organomegaly. EXTREMITIES: No clubbing, cyanosis. Incision R arm, healing well, no evidence of infection. R thigh, he has a well healed incision, there is an indurated area in midportion of incision, that is about 3 inch in diameter, min tender, There is improving redness and color now looks like it has evolving ecchymosis. No joint effusion, has good ROM. No calf tenderness. Well perfused and warm. NEUROLOGICAL: Awake and alert. Cranial nerves grossly intact. Motor grossly within normal limits. PSYCHIATRIC: Normal affect, calm and cooperative. LINE: No evidence of infection Laboratory Date/Time Procedure Status Source Growth 06/17/17 00:15 Aerobic Blood Culture - Preliminary Resulted Blood Peripheral NO GROWTH IN 2 DAYS 06/17/17 00:15 Anaerobic Blood Culture - Preliminary Resulted Blood Peripheral NO GROWTH IN 2 DAYS Result Diagram: 06/18/17 0440 06/18/17 0440 Imaging RADIOLOGY STUDIES/FILMS REVIEWED Lower Extremity CT 06/17/17 0000 Signed Impressions: Service Date/Time: May 01:20 - CONCLUSION: 1. There are postsurgical changes noted in the soft tissues along the medial aspect of the thigh characteristics of patient's recent surgery which was removal of the greater saphenous vein for a vein graft. There is fluid noted along the greater saphenous tract which I suspect is most likely postsurgical. 2. There is nonspecific edema and soft tissue changes in the subcutaneous soft tissues along the anterior medial thigh. No definite loculated fluid collections are demonstrated to suggest an abscess at this time. 3. There is nonspecific mildly prominent right inguinal lymph nodes which are most likely reactive. Andrew Fisher MD Assessment and Plan Assessment and Plan IMPRESSION Cellulitis R thigh, ?with hematoma, clinically improving - no clinical evidence of cellulitis Recent surgery to R brachial artery using GSV for grafting for crush injury RUE RECOMMENDATION Continue IV Vanco Change Levaquin to po If continues to improve, will ask CM to look at coverage for Zyvox and use Zyvox on D/C At least 10 more days Abx on D/C I will follow along with you Thank you for this consultation Discussed Condition With Explained plan to the patient Eloise Garcia MD Jun 19, 2017 17:00
[2017-06-19] MEDS ORDERED: PHARMACY ORDERED LAB ONE (23:45)
[2017-06-20] VITALS (7 sets, daily range): BP systolic 123–137; BP diastolic 70–94; PULSE 70–99; RESP 16–20; TEMP 97.8–98.8; O2SAT 96–99
[2017-06-20] MEDS: LEVOFLOXACIN 750 MG PREMIX INJ 150 ML IV SCH (04:00)
[2017-06-20] MEDS: SODIUM CHLORIDE 0.9% FLUSH 10 ML FLUSH IV FLUSH SCH ×2 (07:57→20:40)
--- NOTE | 2017-06-20 09:20 | HHI.PR ---
Subjective Remarks Patient seen and examined this am. Vitals are stable and he is afebrile. He feels well without any complaints. Ambulatory. Has familiy coming to home tomorrow to help care for him and children so wants to know what time he will be discharged. Objective Vital Signs Date Time Temp Pulse Resp B/P Pulse Ox O2 Delivery O2 Flow Rate FiO2 06/20/17 08:00 97.8 82 18 137/77 97 06/20/17 04:44 98.4 82 18 136/70 96 06/20/17 00:29 98.6 70 18 123/85 97 06/19/17 20:06 98.9 80 18 139/87 98 06/19/17 20:00 72 06/19/17 16:00 97.8 86 18 138/81 96 06/19/17 12:00 97.0 79 18 140/92 96 I/O 06/19/17 06/19/17 06/19/17 06/20/17 06/20/17 06/20/17 07:00 15:00 23:00 07:00 15:00 23:00 Intake Total 250 ml 1771 ml 480 ml 1130 ml Output Total 0 ml Balance 250 ml 1771 ml 480 ml 1130 ml Intake Oral 0 ml 1186 ml 480 ml 480 ml IV Total 250 ml 585 ml 650 ml Output Urine Total 0 ml # Voids 2 2 2 # Bowel Movements 0 2 Result Diagram: 06/18/17 0440 06/20/17 0335 Objective Remarks GENERAL: laying in bed, well appearing, nad SKIN: Warm and dry. right medial thigh with apprx 4 cm of erythema with minimal induation, the area is demarcated with maker and shows significant improvement. there is no drainage or palpable abscess. the incision appears to be healing well as well. not tender to manipulation. HEAD: Normocephalic. EYES: No scleral icterus. No injection or drainage. NECK: Supple, trachea midline. No JVD or lymphadenopathy. CARDIOVASCULAR: Regular rate and rhythm without murmurs, gallops, or rubs. RESPIRATORY: Breath sounds equal bilaterally. No accessory muscle use. GASTROINTESTINAL: Abdomen soft, non-tender, nondistended. MUSCULOSKELETAL: No cyanosis, or edema. A/P Problem List: (1) Cellulitis of right thigh ICD Code: L03.115 Assessment and Plan 41 yo male presents with right thigh cellulitis after saphenous vein harvesting for repair of brachial artery 05/27 Right thigh cellulitis - post op - failed outpatient treatment with bactrim - see imaging above, CT shows no fluid collection or sign of abscess - blood cultures negative x 2 day - currently on levaquin 06/18 & Vancomycin 06/17, will monitor for results and adjust as necessary - Dr. Cardona: cont IV abx, may benefit from 2 weeks abx, PICC, with home infusion set up, follow up with vascular surgeon after discharge ID consult placed, Dr. Garcia has made the following reccs: "Continue IV Vanco Change Levaquin to po If continues to improve, will ask CM to look at coverage for Zyvox and use Zyvox on D/C At least 10 more days Abx on D/C" Discharge Planning D/C pending clinical improvement. Likely Wednesday with abs reccs by ID. CM to assist. Latia Sotomayor MD Jun 20, 2017 09:20
[2017-06-20] MEDS: VANCOMYCIN INJ 1,500 MG in SODIUM CHLORID 0.9% 500 ML INJ 500 ML IV SCH (14:56)
[2017-06-21] MEDS: VANCOMYCIN INJ 1,500 MG in SODIUM CHLORID 0.9% 500 ML INJ 500 ML IV SCH (01:58)
[2017-06-21 04:16] VITALS: BP 130/82; PULSE 70; RESP 18; TEMP 98.2; O2SAT 97
[2017-06-21] MEDS: LEVOFLOXACIN 750 MG PREMIX INJ 150 ML IV SCH (04:47)
[2017-06-21 08:00] VITALS: BP 134/93; PULSE 82; RESP 18; TEMP 95.4; O2SAT 98
[2017-06-21] MEDS: SODIUM CHLORIDE 0.9% FLUSH 10 ML FLUSH IV FLUSH SCH (08:31)
--- NOTE | 2017-06-21 09:45 | HHI.PR ---
Subjective Remarks Patient seen and examined this am. Vitals are stable and he is afebrile. He feels well without any complaints. Ambulatory. Denies CP or SOB. Objective Vital Signs Date Time Temp Pulse Resp B/P Pulse Ox O2 Delivery O2 Flow Rate FiO2 06/21/17 08:00 95.4 82 18 134/93 98 06/21/17 04:16 98.2 70 18 130/82 97 06/20/17 23:50 97.8 74 18 124/80 97 06/20/17 20:20 98.8 79 20 134/94 98 06/20/17 16:00 98.1 85 18 127/82 99 06/20/17 12:00 97.8 83 16 130/83 96 I/O 06/20/17 06/20/17 06/20/17 06/21/17 06/21/17 06/21/17 07:00 15:00 23:00 07:00 15:00 23:00 Intake Total 1130 ml 240 ml 900 ml 1230 ml Balance 1130 ml 240 ml 900 ml 1230 ml Intake Oral 480 ml 240 ml 380 ml 580 ml IV Total 650 ml 520 ml 650 ml # Voids 2 2 2 2 # Bowel Movements 0 Result Diagram: 06/18/17 0440 06/20/17 0335 Imaging Last Impressions Lower Extremity CT 06/17/17 0000 Signed Impressions: Service Date/Time: May 01:20 - CONCLUSION: 1. There are postsurgical changes noted in the soft tissues along the medial aspect of the thigh characteristics of patient's recent surgery which was removal of the greater saphenous vein for a vein graft. There is fluid noted along the greater saphenous tract which I suspect is most likely postsurgical. 2. There is nonspecific edema and soft tissue changes in the subcutaneous soft tissues along the anterior medial thigh. No definite loculated fluid collections are demonstrated to suggest an abscess at this time. 3. There is nonspecific mildly prominent right inguinal lymph nodes which are most likely reactive. Andrew Fisher MD Objective Remarks GENERAL: laying in bed, well appearing, nad SKIN: Warm and dry. right medial thigh with apprx 4 cm of erythema with minimal induration, the area is demarcated with maker and shows significant improvement. there is no drainage or palpable abscess. the incision appears to be healing well as well. not tender to manipulation. HEAD: Normocephalic. EYES: No scleral icterus. No injection or drainage. NECK: Supple, trachea midline. No JVD or lymphadenopathy. CARDIOVASCULAR: Regular rate and rhythm without murmurs, gallops, or rubs. RESPIRATORY: Breath sounds equal bilaterally. No accessory muscle use. GASTROINTESTINAL: Abdomen soft, non-tender, nondistended. MUSCULOSKELETAL: No cyanosis, or edema. A/P Problem List: (1) Cellulitis of right thigh ICD Code: L03.115 Assessment and Plan 41 yo male presents with right thigh cellulitis after saphenous vein harvesting for repair of brachial artery 05/27 Right thigh cellulitis - post op - failed outpatient treatment with bactrim - see imaging above, CT shows no fluid collection or sign of abscess - blood cultures negative x 2 day - currently on levaquin 06/18 & Vancomycin 06/17, will monitor for results and adjust as necessary - Dr. Cardona: ID consult placed, Dr. Garcia has made the following reccs: Continue IV Vanco , Levaquin po -D/C on Zyvox x 10 days Discharge Planning D/C today pending okay by ID. CM to assist with abx. Latia Sotomayor MD Jun 21, 2017 09:45
--- NOTE | 2017-06-21 09:46 | HHI.DCPOC ---
Discharge Care Plan Diagnosis: (1) Cellulitis of right thigh Goals to Promote Your Health * To prevent worsening of your condition and complications * To maintain your health at the optimal level Directions to Meet Your Goals Take your medications as prescribed Follow your dietary instruction Follow activity as directed Keep your appointments as scheduled Take your immunizations and boosters as scheduled If your symptoms worsen call your PCP, if no PCP go to Urgent Care Center or Emergency Room Smoking is Dangerous to Your Health. Avoid second hand smoke Call the 24-hour hour crisis hotline for domestic abuse at Latia Sotomayor MD Jun 21, 2017 09:46
[2017-06-21] MEDS ORDERED: ZYVO600T PO (10:57)
[2017-06-21] MEDS ORDERED: LEVA750T9 OROPHARYNG (10:59)
[2017-06-21] MEDS ORDERED: LINEZOLID 600 MG TAB PO SCH (11:00)
--- NOTE | 2017-06-21 11:04 | HHI.IDPN ---
Subjective Subjective Remarks Patient is a 41-year-old male, who sustained an injury to his right upper extremity while he was at work last May 27, 2017. He was admitted to [facility], and he underwent surgery to his injury word tracheal artery, using greater saphenous vein for grafting. He was discharged home after about 3 days of hospitalization, and he was doing okay until about a week ago when he started noticing some redness in his right thigh. He really didn't have any significant pain, but it was not improving so he went to the urgent care center , and he was given some oral antibiotics. The area of redness did not improve and it seemed to be more swollen so he went to the emergency room for further evaluation and treatment. He has not had any fever or chills or sweats. He denies any other symptom as far as respiratory GI or any urinary complaints. Patient will has been admitted to the hospital for cellulitis in his right thigh. Patient has been on IV vancomycin and Levaquin. He has noted improvement in the area of redness as well as the area of swelling. Imaging study showed some postoperative fluid but no finding to suggest abscess. His WBC is normal. He has not had any fever. Notes reviewed No fever No new complaints Antibiotics Vancomycin Levaquin Past Medical History none Allergies: Coded Allergies: Penicillin (Verified Allergy, Unknown, unknown, 06/16/17) Objective . Vital Signs Date Time Temp Pulse Resp B/P Pulse Ox O2 Delivery O2 Flow Rate FiO2 06/21/17 08:00 95.4 82 18 134/93 98 06/21/17 04:16 98.2 70 18 130/82 97 06/20/17 23:50 97.8 74 18 124/80 97 06/20/17 20:20 98.8 79 20 134/94 98 06/20/17 16:00 98.1 85 18 127/82 99 06/20/17 12:00 97.8 83 16 130/83 96 06/20/17 06/20/17 06/21/17 14:59 22:59 06:59 Intake Total 240 ml 900 ml 1230 ml Balance 240 ml 900 ml 1230 ml Intake Oral 240 ml 380 ml 580 ml IV Total 520 ml 650 ml # Voids 2 2 2 # Bowel Movements 0 . Laboratory Tests Test 06/20/17 03:35 Creatinine 0.92 MG/DL Estimat Glomerular Filtration 91 ML/MIN Rate Physical Exam GENERAL: awake and alert, not in respiratory distress. SKIN: Warm and dry. No generalized rash, no ecchymoses and no evidence of embolic lesions. HEAD: Atraumatic. Normocephalic. No temporal wasting, or tenderness. EYES: [place] conjunctiva. No petechia or hemorrhage. Pupils equal, round and reactive to light. No scleral icterus. No injection or drainage. EARS, NOSE AND THROAT: Nose without bleeding or purulent nasal discharge. No sinus tenderness. Mucous membranes pink and moist. No oral lesions noted. NECK: Trachea midline. Supple and not tender, no meningeal signs CARDIOVASCULAR: Regular rate and rhythm. No murmurs, rubs or gallops heard RESPIRATORY: Clear to auscultation. Breath sounds equal bilaterally. No rales , wheezing or rhonchi ABDOMEN: Soft, non-tender, nondistended. Bowel sounds present and normoactive. No guarding. No rebound. No organomegaly. EXTREMITIES: No clubbing, cyanosis. Incision R arm, healing well, no evidence of infection. R thigh, he has a well healed incision, there is an indurated area in midportion of incision, that is about 3 inch in diameter, min tender, There is improving redness and color now looks like it has evolving ecchymosis. No calf tenderness. Well perfused and warm. NEUROLOGICAL: Awake and alert. Cranial nerves grossly intact. Motor grossly within normal limits. PSYCHIATRIC: Normal affect, calm and cooperative. LINE: No evidence of infection Assessment & Plan Remarks IMPRESSION Cellulitis R thigh, ?with hematoma, clinically improving - no clinical evidence of cellulitis Recent surgery to R brachial artery using GSV for grafting for crush injury RUE RECOMMENDATION Stop IV Vanco Change Levaquin to po Start Zyvox At least 10 more days Abx on D/C Rx printed Spoke with Eloise Dillon MD Jun 21, 2017 11:04
[2017-06-21 12:00] VITALS: BP 131/86; PULSE 85; RESP 18; TEMP 96.6; O2SAT 95
--- NOTE | 2017-06-21 15:49 | HHI.DS ---
Discharge Summary Admission Date Jun 17, 2017 at 03:38 Discharge Date: Jun 21, 2017 Admitting Diagnosis post op cellulitis R thigh Consultants ID Vascular Surgery CBC/BMP: 06/18/17 0440 06/20/17 0335 Imaging Last Impressions Lower Extremity CT 06/17/17 0000 Signed Impressions: Service Date/Time: , June 17, 2017 01:20 - CONCLUSION: 1. There are postsurgical changes noted in the soft tissues along the medial aspect of the thigh characteristics of patient's recent surgery which was removal of the greater saphenous vein for a vein graft. There is fluid noted along the greater saphenous tract which I suspect is most likely postsurgical. 2. There is nonspecific edema and soft tissue changes in the subcutaneous soft tissues along the anterior medial thigh. No definite loculated fluid collections are demonstrated to suggest an abscess at this time. 3. There is nonspecific mildly prominent right inguinal lymph nodes which are most likely reactive. Andrew Fisher MD Hospital Course 41 yo male presents with right thigh cellulitis after saphenous vein harvesting for repair of brachial artery 05/27 Right thigh cellulitis - post op - failed outpatient treatment with bactrim - see imaging above, CT shows no fluid collection or sign of abscess - blood cultures negative x 4 day - was on on levaquin 06/18 & Vancomycin 06/17 in the hospital - Seen by Dr. Cardona vascular surgery, recc IV abx and f/u with the patients vascular surgeon in [place]. ID consult placed, Dr. Garcia has made the following reccs: -D/C on Zyvox & Leavquin for 10 days Pt Condition on Discharge: Stable Discharge Disposition: Discharge Home Discharge Instructions DIET: Follow Instructions for: As Tolerated, No Restrictions Activities you can perform: Regular-No Restrictions Follow up Referrals: PCP Follow-up - 1 Week Vascular Surgery - 1 Week New Medications: Levofloxacin (Levaquin) 750 Mg Tablet 750 MG OROPHARYNG DAILY PRN Infection #10 Ref 0 TAB Linezolid (Zyvox) 600 Mg Tab 600 MG PO Q12HR Infection Days 10 Ref 0 TAB Discontinued Medications: Mupirocin Topical (Mupirocin Topical) 2 % Oint 1 APPLIC TOPICAL BID Mgmt Bacterial Infection #1 Ref 0 TUBE Sulfamethoxazole/Trimethoprim (Sulfamethoxazole-Tmp Ss Tablet) 400 Mg-80 Mg Tablet 1 TAB PO BID Latia Sotomayor MD Jun 21, 2017 15:49
[2017-06-22] MEDS ORDERED: PHARMACY ORDERED LAB ONE (02:45)
[2017-06-22] MEDS ORDERED: LEVOFLOXACIN 750 MG TAB PO SCH (09:00)
== END 2017-06-21 14:08 | disposition home or self-care (01) | DRG 863 ==
LOC: PHED 22:19 → PHEDA 06-17 03:38 → PH3B 06-17 04:43 → HCIS 06-17 15:01 → N07A 06-18 23:01
PROVIDERS: ADMIT Family Medicine; ATTEND Family Medicine
DX: T81.4XXA Infection following a procedure, initial encounter (principal); L03.115 Cellulitis of right lower limb; Y83.8 Other surgical procedures as the cause of abnormal reaction of the patient, or of later complication, without mention of misadventure at the time of the procedure; Y92.9 Unspecified place or not applicable
CPT/HCPCS: 73701; 80048; 80202; 82565; 83605; 85025; 87040; 96365; J1956; J3370; J7040; Q9967